=== PATIENT | female | born 1995 | race Caucasian/White ===

== ENCOUNTER 2016-09-09 20:53 | Emergency (ER) | payer BC, OTHER ==
[~2016-09-09] VITALS: Ht 160 cm; Wt 72.6 kg
[2016-09-09 20:53] VITALS: BP 137/77
[2016-09-09] MEDS ORDERED: AMOX500C PO (21:44)
[2016-09-09] MEDS ORDERED: AMOXICILLIN 500 MG CAP PO ONE (21:45)
== END 2016-09-09 22:06 | disposition home or self-care (01) ==
LOC: M ED 21:57
DX: J03.90 Acute tonsillitis, unspecified (principal); J45.909 Unspecified asthma, uncomplicated

== ENCOUNTER → 2016-12-18 | Outpatient (CLI) | payer OTHER ==
[~2016-12-18] MED LIST: AMOX500C PO
--- NOTE | 2016-12-18 20:23 | REP ---
Clinical: Trauma. Contusion. Technique: AP, lateral, bilateral oblique views right foot . Findings: The osseous structures and joint spaces are intact and normal. There is no evidence for acute fracture or dislocation. Surrounding soft tissues are unremarkable. No subcutaneous emphysema or radiodense foreign body. Impression: No acute fracture or dislocation. Signed by Tomas Cam MD 12/18/2016 08:15 P
== END ==
LOC: M WUC 18:04
PROVIDERS: ATTEND Physician Assistant
DX: S90.31XA Contusion of right foot, initial encounter (principal); X58.XXXA Exposure to other specified factors, initial encounter; Y93.9 Activity, unspecified; Y92.9 Unspecified place or not applicable; Y99.8 Other external cause status

== ENCOUNTER → 2021-02-14 | Outpatient (CLI) | payer BC, OTHER ==
[~2021-02-14] MED LIST changes: +VENTAER
[2021-02-14 18:43] LABS: HEMATOCRIT 36.8 % (36.0-47.0); HEMOGLOBIN 12.5 g/dl (12.0-15.5); MEAN CORPUSCULAR VOLUME 88.5 fl (80.0-96.0); PLATELET COUNT, AUTOMATED 270 10^3/uL (150-450); RED BLOOD COUNT 4.16 10^6/uL (4.00-5.40); WHITE BLOOD COUNT 8.7 10^3/uL (4.0-10.0)
[2021-02-14 20:47] LABS: HEPATITIS C VIRUS ABY INDEX < 0.0 INDEX (<0.8); HIV 1&2 SCREEN CENTAUR NEGATIVE (NEGATIVE)
[2021-02-14 21:15] LABS: GC DNA AMPLIFICATION NEGATIVE (NEGATIVE)
== END ==
LOC: M PLALAB 14:05
PROVIDERS: ATTEND Advanced Practice Midwife
DX: Z34.01 Encounter for supervision of normal first pregnancy, first trimester (principal); Z3A.00 Weeks of gestation of pregnancy not specified

== ENCOUNTER → 2021-03-14 | Outpatient (CLI) | payer BC, OTHER | LOC: M PLALAB 09:25 | PROVIDERS: ATTEND Advanced Practice Midwife | DX: Z34.81 Encounter for supervision of other normal pregnancy, first trimester (principal); Z36.89 Encounter for other specified antenatal screening ==

== ENCOUNTER → 2021-06-22 | Outpatient (REF) | payer OTHER | LOC: M PLALAB 21:21 | PROVIDERS: ATTEND Advanced Practice Midwife | DX: O99.810 Abnormal glucose complicating pregnancy (principal); Z53.9 Procedure and treatment not carried out, unspecified reason ==

== ENCOUNTER → 2021-06-22 | Outpatient (CLI) | payer BC, OTHER ==
[2021-06-22 13:59] LABS: HEMATOCRIT 35.7 % (36.0-47.0); HEMOGLOBIN 12.2 g/dl (12.0-15.5); MEAN CORPUSCULAR HEMOGLOBIN 30.8 pg (27.0-33.0); MEAN CORPUSCULAR HGB CONC 34.2 g/dl (32.0-36.5); MEAN CORPUSCULAR VOLUME 90.2 fl (80.0-96.0); PLATELET COUNT, AUTOMATED 215 10^3/uL (150-450); RED BLOOD COUNT 3.96 10^6/uL (4.00-5.40); WHITE BLOOD COUNT 10.2 10^3/uL (4.0-10.0)
== END ==
LOC: M PLALAB 10:01
PROVIDERS: ATTEND Advanced Practice Midwife
DX: Z34.02 Encounter for supervision of normal first pregnancy, second trimester (principal); Z36.89 Encounter for other specified antenatal screening
CPT/HCPCS: 36415; 82950; 85027; 86850; 86900; 86901; J2790

== ENCOUNTER → 2021-07-01 | Outpatient (CLI) | payer OTHER | LOC: M LAB 08:19 | PROVIDERS: ATTEND Advanced Practice Midwife | DX: O99.810 Abnormal glucose complicating pregnancy (principal); Z3A.00 Weeks of gestation of pregnancy not specified ==

== ENCOUNTER → 2021-08-29 | Outpatient (REF) | payer OTHER | LOC: M SFHCWAGY 16:53 | PROVIDERS: ATTEND Obstetrics & Gynecology | DX: Z34.03 Encounter for supervision of normal first pregnancy, third trimester (principal) ==

== ENCOUNTER 2021-09-25 12:42 | Inpatient (IN) | payer BC, OTHER ==
[~2021-09-25] VITALS: Ht 160 cm; Wt 91.6 kg
[2021-09-25] VITALS (8 sets, daily range): BP systolic 120–143; BP diastolic 76–92
[2021-09-25] MEDS ORDERED: TUMS500C PO (13:15)
[2021-09-25] MEDS ORDERED: MULTTAB20 PO (13:15)
[2021-09-25] MEDS ORDERED: LACTATED RINGER'S 1000 ML IV STA (13:59)
[2021-09-25] MEDS ORDERED: CARBOPROST TROMETHAMINE 250 MCG/ML AMP IM PRN (14:00)
[2021-09-25] MEDS ORDERED: TRANEXAMIC ACID INJection 1,000 MG in NS 100 ML IV PRN (14:00)
[2021-09-25] MEDS ORDERED: LIDOCAINE 1% MDV 20ML VIAL INFIL PRN (14:00)
[2021-09-25] MEDS ORDERED: METHYLERGONOVINE MALEATE 0.2 MG/ML VIAL (J2210) IM PRN (14:00)
[2021-09-25 14:22] LABS: HEMATOCRIT 33.8 % (36.0-47.0); HEMOGLOBIN 11.7 g/dl (12.0-15.5); MEAN CORPUSCULAR HEMOGLOBIN 29.7 pg (27.0-33.0); MEAN CORPUSCULAR HGB CONC 34.6 g/dl (32.0-36.5); MEAN CORPUSCULAR VOLUME 85.8 fl (80.0-96.0); PLATELET COUNT, AUTOMATED 232 10^3/uL (150-450); RED BLOOD COUNT 3.94 10^6/uL (4.00-5.40); WHITE BLOOD COUNT 10.6 10^3/uL (4.0-10.0)
[2021-09-25] MEDS: miSOPROStol 50MCG 1/2 TABLET SL SCH ×2 (14:40→19:57)
[2021-09-25] MEDS ORDERED: PROMETHAZINE 25MG/ML 1ML VIAL IV ONE (18:30)
[2021-09-25] MEDS ORDERED: BUTORPHANOL 2 MG/ML INJ (J0595) IV ONE (18:30)
[2021-09-25] MEDS ORDERED: OXYTOCIN DRIP 30 UNITS in IV 1 EA IV SCH (23:40)
[2021-09-26] VITALS (59 sets, daily range): BP systolic 99–171; BP diastolic 56–100
[2021-09-26] MEDS: miSOPROStol 50MCG 1/2 TABLET SL SCH (00:10)
[2021-09-26] MEDS ORDERED: NALOXONE INJ 0.4MG/1ML VIAL (J2310 PER 1MG) IV PRN (00:20)
[2021-09-26] MEDS ORDERED: LR 500 ML IV PRN (00:20)
[2021-09-26] MEDS ORDERED: ONDANSETRON 4MG/2ML VIAL IV PRN (00:20)
[2021-09-26] MEDS ORDERED: diphenhydrAMINE 50MG/ML VIAL (J1200) IV PRN (00:20)
[2021-09-26] MEDS ORDERED: EPIDURAL/PCA KEYS XX PRN (00:20)
[2021-09-26] MEDS ORDERED: ePHEDrine SULFATE 25 MG/5 ML(5MG/ML) SYRINGE IVP PRN (00:20)
[2021-09-26] MEDS: FENTANYL/ROPIVACAINE/NACL BAG 100 ML EPIDURAL SCH ×2 (01:25→08:19)
[2021-09-26] MEDS: PRENATAL VITAMINS CHEWABLE TABLET PO SCH (09:00)
[2021-09-26] MEDS ORDERED: LABETALOL 100MG/20ML VIAL IV STA (09:38)
[2021-09-26] MEDS ORDERED: LABETALOL 100MG/20ML VIAL As Ordered ONE (09:40)
[2021-09-26] MEDS ORDERED: ACETAMINOPHEN TAB 650MG DOSE (2X325MG) PO PRN (12:55)
[2021-09-26] MEDS ORDERED: MOM 30ML SUSPENSION UDC PO PRN (12:55)
[2021-09-26] MEDS ORDERED: ANUSOL HC CREAM 30GM TOP PRN (12:55)
[2021-09-26] MEDS ORDERED: RHOGAM 300 MCG (1500 IU) INJ (J2790) IM SCH (12:55)
[2021-09-26] MEDS ORDERED: ACETAMINOPHEN 500 MG TAB PO PRN (12:55)
[2021-09-26] MEDS ORDERED: METHYLERGONOVINE MALEATE 0.2 MG TAB PO PRN (12:55)
[2021-09-26] MEDS ORDERED: DIBUCAINE 1% OINTMENT 30GM TOP PRN (12:55)
[2021-09-26] MEDS ORDERED: IBUPROFEN 600MG TAB PO PRN (12:55)
[2021-09-26] MEDS: DOCUSATE SODIUM 100MG CAPSULE PO SCH (21:16)
[2021-09-26] MEDS: IBUPROFEN 800 MG TAB PO PRN (21:18)
[2021-09-27 06:00] VITALS: BP 115/56
[2021-09-27] MEDS: PRENATAL VITAMINS CHEWABLE TABLET PO SCH (09:56)
[2021-09-27] MEDS: DOCUSATE SODIUM 100MG CAPSULE PO SCH ×2 (09:56→21:52)
[2021-09-27] MEDS: IBUPROFEN 800 MG TAB PO PRN (09:57)
[2021-09-27 18:00] VITALS: BP_SYST 118; BP_SYST 132; BP_DIAS 73; BP_DIAS 80
[2021-09-28 06:13] VITALS: BP 127/70
[2021-09-28] MEDS: PRENATAL VITAMINS CHEWABLE TABLET PO SCH (08:15)
[2021-09-28] MEDS: DOCUSATE SODIUM 100MG CAPSULE PO SCH (08:15)
[2021-09-28] MEDS ORDERED: MEASLES,MUMPS,RUBELLA VACCINE INJ (MMR-II) (90707) SC ONE (09:00)
== END 2021-09-28 12:20 | disposition home or self-care (01) | DRG 560 ==
LOC: M LDO 12:42 → M LDI 13:35 → M OBS 09-26 17:10
PROVIDERS: ADMIT Obstetrics & Gynecology; ATTEND Obstetrics & Gynecology
PROC: 3E0P7GC Introduction of Other Therapeutic Substance into Female Reproductive, Via Natural or Artificial Opening (ICD-10-PCS; 2021-09-25)
PROC: 10E0XZZ Delivery of Products of Conception, External Approach (ICD-10-PCS; principal; 2021-09-26)
PROC: 0KQM0ZZ Repair Perineum Muscle, Open Approach (ICD-10-PCS; 2021-09-26)
PROC: 0HQ9XZZ Repair Perineum Skin, External Approach (ICD-10-PCS; 2021-09-26)
DX: O70.1 Second degree perineal laceration during delivery (principal); O63.1 Prolonged second stage (of labor); Z3A.40 40 weeks gestation of pregnancy; O69.81X0 Labor and delivery complicated by cord around neck, without compression, not applicable or unspecified; O77.0 Labor and delivery complicated by meconium in amniotic fluid; O70.0 First degree perineal laceration during delivery; Z37.0 Single live birth